=== PATIENT | female | born 1990 | race Caucasian/White ===

== ENCOUNTER 2017-01-14 01:19 | Outpatient (CLI) | payer MEDICAID ==
[~2017-01-14] VITALS: Ht 157.5 cm; Wt 86.7 kg
--- NOTE | ~2017-01-14 | CON ---
PATIENT'S NAME: MACARENA DELVALLE [facility] AGE: 26 Y [address] ROOM: [place] [id number] LOCATION: GOBS ADMIT DATE: 01/14/2017 Consultation DISCHARGE DATE: 01/14/2017 FAMILY PHYSICIAN: Dk Medina MD ATTENDING PHYSICIAN: Bj Adam DATE OF CONSULTATION: 01/14/2017 The patient is a 26-year-old female who currently is approximately 32 weeks gestational age. She walked in with complaints of contractions every 5 minutes. She is an unregistered patient from [place]. We have no records. Upon arrival, external monitor was applied and she did not show any contractions. heart tones were normal with a reactive pattern. Cervix is 1 cm dilated. The patient states that this is approximately the cervical dilation that she had 2 days ago in [place]. The patient was monitored for several hours and again no contractions were identified. heart tones remained normal throughout. Subsequently found the diagnosis of false labor and will be discharged to home with labor precautions. BJ ADAM MD DHW/modl /[id number] d: t: 01/14/17 1120, CONSULTATION REPORT
[~2017-01-14 01:19] MED LIST: FIORICET-COD 51 EACH PO; PRENATAL 1+1)(P1 TAB PO
== END 2017-01-14 08:25 | disposition disaster alternative care site (69) ==
LOC: GOBS 01:19 → GOBM 01:19 → GOBS 01:22 → GOBM 08:25
DX: O47.03 False labor before 37 completed weeks of gestation, third trimester (principal); Z3A.33 33 weeks gestation of pregnancy
CPT/HCPCS: G0463